=== PATIENT | female | born 1970 | race Hispanic/Latino ===

== ENCOUNTER 2021-02-05 08:25 | Emergency (ER) | payer OTHER ==
[~2021-02-05] VITALS: Ht 160 cm; Wt 74.8 kg
[2021-02-05] MEDS ORDERED: SODIUM CHLORIDE 0.9% 1000ML 1,000 ML IV STA (08:33)
[2021-02-05] MEDS ORDERED: ONDANSETRON HCL INJ 2MG/ML 2ML 2 MG/ML VIAL IV STA (08:33)
[2021-02-05] MEDS ORDERED: MORPHINE SULFATE INJ 4 MG/ML INJ 1ML IV STA (08:33)
[2021-02-05] MEDS ORDERED: DIATRIZOATE MEGL/DIATRIZOA SOD 30 ML BTL PO ONE (08:56)
[2021-02-05 09:04] LABS: BASOPHILS # (AUTO) 0.1 (0.0-0.1); EOSINOPHILS # (AUTO) 0.3 (0.0-0.4); EOSINOPHILS % 2.9 % (0.0-6.0); HEMATOCRIT 44.4 % (34.2-44.1); HEMOGLOBIN 15.2 g/dL (12.0-16.0); LYMPHOCYTES # (AUTO) 3.7 (1.0-3.2); LYMPHOCYTES % 31.6 % (18.0-39.1); MEAN CORPUSCULAR HEMOGLOBIN 30.9 pg (28-32); MEAN CORPUSCULAR HGB CONC 34.2 g/dL (31-35); MEAN CORPUSCULAR VOLUME 90.2 fL (81-99); MONOCYTES # (AUTO) 0.7 (0.2-0.8); MONOCYTES % 6.2 % (4.4-11.3); NEUTROPHILS # (AUTO) 6.7 (2.1-6.9); NEUTROPHILS % 57.9 % (38.7-80.0); PLATELET COUNT 384 x10e3/uL (140-360); RED BLOOD COUNT 4.92 x10e6/uL (3.6-5.1); RED CELL DISTRIBUTION WIDTH 12.6 % (11.7-14.4)
[2021-02-05 09:22] LABS: CLARITY,URINE CLEAR (CLEAR); COLOR,URINE YELLOW (YELLOW); KETONES,URINE TRACE (NEGATIVE); LEUKOCYTE ESTERASE ,URINE NEGATIVE (NEGATIVE); NITRITE,URINE NEGATIVE (NEGATIVE); PROTEIN,URINE DIPSTICK TRACE (NEGATIVE); URINE UROBILINOGEN 0.2 mg/dL (0.2 - 1)
[2021-02-05 09:23] LABS: AMPHETAMINES SCREEN,URINE NEGATIVE (NEGATIVE); BENZODIAZEPINES SCREEN,URINE POSITIVE (NEGATIVE); PHENCYCLIDINE SCREEN,URINE NEGATIVE (NEGATIVE)
[2021-02-05 09:24] LABS: ALBUMIN 4.4 g/dL (3.5-5.0); ALBUMIN/GLOBULIN RATIO 1.1 (0.8-2.0); CALCIUM 9.4 mg/dL (8.4-10.2); CREATININE, SERUM 0.8 mg/dL (0.57-1.11)
[2021-02-05 09:33] LABS: BACTERIA,URINE MANY /HPF; EPITHELIAL CELLS,URINE MANY /LPF; RBC,URINE 0-5 /HPF (0-5); WBC,URINE (MAN) 0-5 /HPF (0-5)
[2021-02-05] MEDS ORDERED: SODIUM CHLORIDE 0.9% 50ML 50 ML ONE (09:53)
[2021-02-05] MEDS ORDERED: IOPAMIDOL 370 MG/ML 200 ML INFUS..BTL INJ ONE (09:53)
[2021-02-05] MEDS ORDERED: DICYCLOMINE HCL 20 MG/2 ML VIAL IM ONE (12:00)
[2021-02-05 12:11] VITALS: BP 127/76
== END 2021-02-05 12:12 | disposition home or self-care (01) ==
LOC: ER 08:30
DX: R10.32 Left lower quadrant pain (principal); R11.2 Nausea with vomiting, unspecified; E11.9 Type 2 diabetes mellitus without complications; F14.10 Cocaine abuse, uncomplicated; F13.10 Sedative, hypnotic or anxiolytic abuse, uncomplicated; F12.10 Cannabis abuse, uncomplicated
CPT/HCPCS: 36415; 74177; 80053; 80307; 81001; 82150; 83690; 83735; 85025; 87086; 99284; C9113; J0500; J2270; J2405; J7030; Q9967

== ENCOUNTER 2021-03-19 20:47 | Emergency (ER) | payer OTHER ==
[~2021-03-19] VITALS: Ht 160 cm; Wt 74.8 kg
[2021-03-19] MEDS ORDERED: FAMOTIDINE 20 MG/2 ML VIAL IV STA (21:42)
[2021-03-19] MEDS ORDERED: KETOROLAC TROMETHAMINE 30 MG/ML VIAL IV STA (21:42)
[2021-03-19] MEDS ORDERED: METOCLOPRAMIDE HCL 10 MG/2ML VIAL IV ONE (21:45)
[2021-03-19] MEDS ORDERED: METOCLOPRAMIDE HCL 10 MG/2ML VIAL ONE (22:17)
[2021-03-19] MEDS ORDERED: SODIUM CHLORIDE 0.9% 1000ML 1,000 ML ONE (22:18)
[2021-03-19] MEDS ORDERED: KETOROLAC TROMETHAMINE 30 MG/ML VIAL ONE (22:18)
[2021-03-19] MEDS ORDERED: FAMOTIDINE 20 MG/2 ML VIAL IV ONE (22:18)
[2021-03-19] MEDS ORDERED: PANTOPRAZOLE SO40 MG PO (23:57)
[2021-03-19] MEDS ORDERED: LEVSIN-SL0.125 MG SL (23:58)
[2021-03-19] MEDS ORDERED: METOCLOPRAMIDE10 MG PO (23:58)
== END 2021-03-20 00:23 | disposition home or self-care (01) ==
LOC: FSED 21:15
DX: R10.33 Periumbilical pain (principal); K29.70 Gastritis, unspecified, without bleeding; R11.2 Nausea with vomiting, unspecified; E11.65 Type 2 diabetes mellitus with hyperglycemia; K59.00 Constipation, unspecified; F41.9 Anxiety disorder, unspecified
CPT/HCPCS: 74022; 80053; 80076; 81003; 81025; 85025; 93005; 99284; J1885; J2765; J7030